=== PATIENT | male | born 1995 | race Caucasian/White ===

== ENCOUNTER 2016-07-09 02:08 | Emergency (ER) | payer OTHER ==
[~2016-07-09] VITALS: Ht 182.9 cm; Wt 110.0 kg
[2016-07-09 02:16] VITALS: TEMP 36.5; Ht 182.9 cm; Wt 110.0 kg
[2016-07-09 03:30] LABS: BUN/CREATININE RATIO 12.1 (10-20); CALCIUM 8.7 mg/dl (8.5-10.1); CREATININE 0.88 mg/dl (0.60-1.40); POTASSIUM 4.1 mmol/L (3.5-5.1)
[2016-07-09 04:04] VITALS: O2SAT 98
--- NOTE | 2016-07-09 06:29 | EMERGENCY ROOM VISIT NOTE ---
History First contact with patient: 02:44 Chief Complaint: ALCOHOL OVERDOSE Stated Complaint: POSSIBLE ALCOHOL POISONING Nursing Triage Summary: Patient arrives to ED with friends for alcohol intoxication, friends concerned because patient was vomiting and unable to hold any water down. Patient states he can't remember any of this. Patient was drinking jungle juice tonight. History of Present Illness The patient is a 21 year old male who presents to the Emergency Department by private vehicle with his friends for evaluation of a possible alcohol overdose. The patient reportedly had drank "jungle juice" all evening. He was vomiting and unable to keep down fluids. This prompted the patient's friends to bring him to the emergency department. The patient denies any falls or head injuries. He denies any other drug use. He takes no daily medications. He rates his current discomfort as a 0/10. He denies any recent illnesses, bloody vomitus, or diarrhea. He reports no abdominal pain. Review of Systems A complete 10-point Review of Systems was discussed with the patient, with pertinent positives and negatives listed in the History of Present Illness. All remaining Review of Systems questions can be considered negative unless otherwise specified. Social History Smoking Status: Never Smoker Smokeless Tobacco Use: No Alcohol Use: occasionally Drug Use: none Marital Status: single Housing Status: lives with roommate Occupation Status: [employer] student Current/Historical Medications No Active Prescriptions or Reported Meds Allergies Coded Allergies: No Known Allergies (Unverified , 07/09/16) Physical Exam Vital Signs Date Time Temp Pulse Resp B/P Pulse Ox O2 Delivery O2 Flow Rate FiO2 07/09/16 06:38 99 18 128/68 100 07/09/16 05:15 81 18 103/64 95 Room Air 07/09/16 04:22 85 20 95/60 97 Room Air 07/09/16 04:04 98 Room Air 07/09/16 02:44 101 07/09/16 02:16 36.5 98 20 120/68 97 Room Air Pain Rating (0-10): 0 Physical Exam VITALS - Vitals are noted on the nurse's note and reviewed by myself. Vital signs stable. GENERAL -21-year-old male, in no acute distress, nondiaphoretic, well-developed well-nourished. The patient is visibly intoxicated. SKIN - The skin was without obvious lacerations, abrasions, or rashes. There is no tenting of the skin. Capillary reflex less than 2 seconds. HEENT - Normocephalic, atraumatic. PERRLA. EOMI. Conjunctiva with mild injection without icterus. Tympanic membranes without erythema or effusion bilaterally no hemotympanum. External auditory canals are clear. Nares patent bilaterally. No epistaxis. Oropharynx without erythema or exudate. Uvula midline. Oral mucosal moist. No lymphadenopathy. Neck is supple without cervical spine tenderness. HEART - Regular rate and rhythm without murmurs gallops or rubs. Peripheral pulses 2+. LUNGS - Clear to auscultation bilaterally without wheezes, rales or rhonchi. ABDOMEN - Positive bowel sounds x 4. Normal tympanic percussion. Soft, nontender, without masses or organomegaly. MUSCULOSKELETAL - Gross motor function of the upper and lower extremities intact. NEUROLOGIC - The patient is visibly intoxicated. Medical Decision & Procedures Laboratory Results 07/09/16 03:00 Test 07/09/16 03:00 Anion Gap 10.0 mmol/L (3-11) Est Creatinine Clear Calc Drug Dose 170.1 ml/min Estimated GFR () 142.3 Estimated GFR (Non- 122.8 BUN/Creatinine Ratio 12.1 (10-20) Calcium Level 8.7 mg/dl (8.5-10.1) Ethyl Alcohol mg/dL 175.0 mg/dl (0-3) Procedure Patient was placed on the logistics team lead and monitored throughout the entire extent of their stay. In addition, the patient's pulse oximetry was monitored throughout the entire stay. Any abnormalities or aberrancies were addressed appropriately. ED Course Patient was seen and evaluated by myself. Aspiration precautions were instituted and the patient was placed in the prone position. The patient was placed on the logistics team lead and pulse oximetry was monitored throughout the entire stay in the emergency department. Labs were collected. Patient's medical alcohol was found to be elevated at 175.0 mg/dL. Patient was monitored in the emergency department for greater than 4 hours. The patient eventually was awoken and educated on today's visit. They were encouraged to refrain from heavy drinking. All labs and diagnostics were reviewed. Patient was discharged home with his sober friends driving. Medical Decision Given the patient's presentation and exam findings, I did elect to perform the above-mentioned workup. The patient presents today visibly intoxicated. The patient was monitored constantly throughout entire stay in the emergency setting. Medical alcohol level was elevated significantly at 175.0 mg/dL. After a lengthy stay in the Emergency Department the patient was deemed appropriate for discharge. Patient was discharged home with his sober friends. In the evaluation and treatment of this patient, the following differential diagnoses were considered: Hypoglycemia, Barbiturate Toxicity, Benzodiazepine Toxicity, Depression and Suicidality, Diabetic Ketoacidosis, Encephalitis, Ethylene Glycol Toxicity, Meningitis, Metabolic Acidosis, Opioid Toxicity, CVA, TIA, Intracranial Abnormality, Acute Psychosis, Amongst Others. Impression Primary Impression: Alcohol use with intoxication Departure Information Dispostion Home / Self-Care Condition GOOD Prescriptions No Active Prescriptions or Reported Meds Referrals No Doctor, Assigned (PCP) Patient Instructions [facility]: [employer] Students and Alcohol Related Visits Additional Instructions You've been seen in the emergency department today for alcohol overdose. Please refrain from excessive drinking. Do not drive or operate machinery for the remainder of the day. For pain control, you can use the following [id number] medicines (if >12 yo): - Regular strength (325mg/tab) Tylenol (acetaminophen) 2 tabs every 4-6 hours as needed. Do not exceed 12 tablets in a 24 hour period. Avoid taking more than 4 grams (4000 mg) of Tylenol per day. This includes any other sources of acetaminophen you may take on a regular basis. - Regular strength (200 mg/tab) Advil (ibuprofen) 1-2 tabs every 4-6 hours as needed. Do not exceed a dose of 3200 mg per day. Follow-up with [facility] as needed.
[2016-07-09 06:38] VITALS: BP 128/68; PULSE 99; O2SAT 100
== END 2016-07-09 06:39 | disposition home or self-care (01) ==
LOC: C.EDB 02:10 → C.EDA 06:39
DX: F10.129 Alcohol abuse with intoxication, unspecified (principal)